=== PATIENT | male | born 1945 | race Caucasian/White ===

== ENCOUNTER 2021-07-05 13:53 | Emergency (ER) | payer MEDICARE, SELFPAY ==
--- NOTE | 2021-07-05 14:02 | ED.CHESTPAIN ---
HPI - Chest Pain General Chief Complaint: Chest Pain Stated Complaint: chest pain with vomiting Source: patient Mode of arrival: ambulatory Limitations: no limitations History of Present Illness HPI narrative: Patient is a 75-year-old male who presents complaining of chest pain x2 weeks. Reports increasing chest pain today. Denies shortness of breath. Reports significant cardiac history. Patient is from out of town and visiting family at this time. MD complaint: chest pain Related Data Home Medications Medication Instructions Recorded Confirmed allopurinol 150 mg PO DAILY 07/05/21 07/05/21 aspirin 81 mg PO DAILY 07/05/21 07/05/21 cilostazol mg 07/05/21 doxazosin 2 mg PO DAILY 07/05/21 07/05/21 dutasteride [Avodart] 0.5 mg PO DAILY 07/05/21 07/05/21 finasteride mg 07/05/21 fluticasone propionate [Flonase] INTRANASAL 07/05/21 hydrocodone-aspirin tablet PO 07/05/21 metoprolol succinate 50 mg PO DAILY 07/05/21 07/05/21 omeprazole 40 mg PO DAILY 07/05/21 07/05/21 pravastatin 20 mg PO DAILY 07/05/21 07/05/21 tamsulosin 0.4 mg PO DAILY 07/05/21 07/05/21 valsartan-hydrochlorothiazide 1 tablet PO DAILY 07/05/21 07/05/21 Allergies Allergy/AdvReac Type Severity Reaction Status Date / Time No Known Allergies Allergy Verified 07/05/21 14:12 Review of Systems Review of Systems: CONSTITUTIONAL: Denies fever, chills, or sweats. EYES: Denies visual changes, redness, or discharge. ENT: Denies rhinorrhea, congestion, sore throat, or otalgia. CARDIOVASCULAR: Reports chest pain RESPIRATORY: Denies cough or dyspnea. GASTROINTESTINAL: Denies abdominal pain, nausea, vomiting, or diarrhea. GENITOURINARY: Denies dysuria or hematuria. SKIN: Denies rash or itching. MUSCULOSKELETAL: Denies back pain, joint pain, or myalgia. NEUROLOGIC: Denies headache, numbness, dizziness, or weakness. PSYCHIATRIC: Denies anxiety or depression. [facility] Past Medical History Medical History Cataract CVA (cerebral vascular accident) Elevated cholesterol Enlarged prostate GERD (gastroesophageal reflux disease) Gout HTN (hypertension) Stomach tumor (benign) Surgical History Surgical History H/O hernia repair H/O vasectomy Social History Social History (Updated 07/05/21 @ 14:16 by LUIS ENRIQUE Miner) Smoking status: Former smoker Alcohol intake: never Substance use: never Living arrangements: with family Occupation/Education: retired Comments At the time of signature, I have reviewed and agree with nursing past medical, surgical, social, and family history unless otherwise noted. Please see nursing chart for further information. There is no relevant family history pertinent to the presenting complaint. Exam Narrative: GENERAL: Well-appearing, well-nourished, and in no acute distress. HEAD: Normocephalic, atraumatic. EYES: EOMI. No redness or drainage. Conjunctiva are normal. ENT: Mucous membranes pink and moist. CHEST: No respiratory distress. Clear to auscultation. HEART: Regular rate and rhythm. No murmur appreciated. Normal peripheral pulses. SKIN: Warm, dry, no rash. NEURO: No focal deficits. Alert and oriented x3. Gait steady. PSYCH: Normal affect. No signs of depression or anxiety. Course Course Emergency Course: Report Transfer Transfered to: [facility] Transportation: Other (Patient refusing EMS transfer at this time, will go by private vehicle with daughter driving.) Transfer rationale: Higher level of Care Accepting physician: Dr. Correa Transfer comments: Patient to be transferred to a higher level of care, refusing EMS service and refusing to be transferred to nearest facility, which is [place] at this time. Patient requesting to go to [facility] per daughter, patient is from out of town and daughter would prefer he is at [facility]. Patient and family aware of
--- NOTE | 2021-07-05 14:07 | ECG_ITS ---
Measurements Intervals [place] Rate: 70 P: 68 [place]: 150 QRS: 52 QRSD: 141 T: 46 QT: 414 QTc: 449 Interpretive Statements SINUS RHYTHM RIGHT BUNDLE BRANCH BLOCK BASELINE ARTIFACT- II, III, AVL, AVF, V3 ABNORMAL ECG Electronically Signed On 07-05-2021 16:58:55 [employer] by Arnie Avitia D.O.
[2021-07-05 14:08] VITALS: BP 156/84; PULSE 76; RESP 16; TEMP 36.2; O2SAT 98
== END 2021-07-05 14:20 | disposition short-term general hospital (02) ==
PROVIDERS: Emergency Provider Nurse Practitioner
DX: R07.9 Chest pain, unspecified (principal); Z87.891 Personal history of nicotine dependence; E78.00 Pure hypercholesterolemia, unspecified; N40.0 Benign prostatic hyperplasia without lower urinary tract symptoms; K21.9 Gastro-esophageal reflux disease without esophagitis; M10.9 Gout, unspecified; I10 Essential (primary) hypertension; Z86.73 Personal history of transient ischemic attack (TIA), and cerebral infarction without residual deficits; Z98.52 Vasectomy status; Z79.82 Long term (current) use of aspirin
CPT/HCPCS: 93005; 99213; G0463

== ENCOUNTER 2023-10-13 23:05 | Emergency (ER) | payer MEDICARE, SELFPAY ==
--- NOTE | ~2023-10-13 | CT_ITS ---
Clinical Indication: Trauma CT Scan of the Chest with Contrast: Technique: Contiguous sections were acquired throughout the chest after intravenous administration of 100 cc of Omnipaque 350. Dose reduction technique was used on this scan by utilizing automated expos ure control and iterative reconstruction technique. The dose-length product (DLP) was 182.23 mGy-cm. Findings: There is no evidence of any significant mediastinal, hilar or axillary lymphadenopathy. There is no f illing defect in the pulmonary arterial tree to suggest pulmonary embolus. There is no evidence of ao rtic dissection or aneurysm. There is no evidence of pleural or pericardial effusion. Probable minimal emphysema. There is linear scarring or atelectasis right lower lobe. No suspicious p ulmonary abnormality seen. No pneumothorax. Images through the upper abdomen reveal no abnormalities. There are acute minimally displaced fractures of the lateral aspect of the right seventh and eighth r ibs. Multiple additional subacute to chronic bilateral rib fracture deformities are present. Severe c ompression fracture T12 present. Impression: Acute minimally displaced fractures of the right seventh and eighth ribs laterally. Severe T12 compression fracture, age-indeterminate. Multiple additional bilateral subacute to chronic rib fracture deformities. Probable minimal emphysema in the upper lobes. Reviewed, dictated and finalized at [facility]. Impression: Acute minimally displaced fractures of the right seventh and eighth ribs latera lly. Severe T12 compression fracture, age-indeterminate. Multiple additional bilateral subacute to chronic rib fracture deformities. Probable minimal emphysema in the upper lobes.
--- NOTE | ~2023-10-13 | CT_ITS ---
CT head without contrast Indication: Status post fall Technique: Serial scans were obtained through the brain without the administration of contrast. Dose reduction technique was used on this scan by utilizing automated exposure control and iterative recon struction technique. The dose-length product (DLP) was 681.00 mGy-cm. Findings: There is no evidence of intracranial hemorrhage, mass lesion, or acute infarct. The ventri cles and subarachnoid spaces are dilated, consistent with mild atrophy. Focal chronic infarcts are no broderick in the right basal ganglia and left periventricular white matter.. Low attenuation regions are se en within the periventricular white matter bilaterally, likely representing changes from chronic micr ovascular ischemic disease. There is no evidence of edema, mass effect or midline shift. The visual ized paranasal sinuses and mastoid air cells are clear. Impression: No intracranial hemorrhage, mass, or acute infarct. Focal chronic infarcts, as above. Atrophy and chronic white matter changes, as above. Reviewed, dictated and finalized at location . Impression: No intracranial hemorrhage, mass, or acute infarct. Focal chronic infarcts, as above. Atrophy and chronic white matter changes, as above.
--- NOTE | ~2023-10-13 | XR_ITS ---
EXAM: XR shoulder LT min 2V DATE: 10/13/2023 23:54 HISTORY: Fall PAIN . COMPARISON: None available. FINDINGS: Normal mineralization. Comminuted fracture of the left scapular body. Multiple rib fractur es involving the left posterior and posterolateral third through ninth, several of which are segmenta l. Healing change may be present at several of the rib fracture sites. No lytic or blastic lesion. Lynn int spaces are maintained. No erosion or periosteal change. Soft tissues within normal limits. IMPRESSION: Acute comminuted fracture of the left scapular body.. Multiple acute and possibly subacute left third through ninth posterior and posterolateral rib fractu res several of which are segmental. Reviewed, dictated and finalized at location [facility]. IMPRESSION: Acute comminuted fracture of the left scapular body.. Multiple acute and possibly subacute left third through ninth posterior and pos terolateral rib fractures several of which are segmental.
--- NOTE | ~2023-10-13 | CT_ITS ---
Noncontrast CT scan of the cervical spine Technique: Multiple contiguous axial [address] images of the cervical spine were obtained and rec onstructed in 2D sagittal and coronal planes on the acquisition scanner. Dose reduction technique was used on this scan by utilizing automated exposure control, adjustment of the mA and/or kV according to patient size. The dose-length product (DLP) was 174.44 mGy-cm. Clinical History: Pain Findings: No acute fracture seen. There is minimal grade 1 anterolisthesis of C4 over C5. There is ad vanced degenerative disc narrowing at C3-C4 and C6-C7. There is moderate degenerative disc narrowing at C5-C6. There are are extensive facet joint degenerative changes, especially at the C3-C4, C4-C5, C 5-C6 levels bilaterally. No prevertebral soft tissue swelling. There is mild emphysema at the lung apices. Impression: No acute fracture. Minimal grade 1 anterolisthesis of C4 over C5. Degenerative changes, as above. Reviewed, dictated and finalized at [facility]. Impression: No acute fracture. Minimal grade 1 anterolisthesis of C4 over C5. Degenerative changes, as above.
[2023-10-13 23:09] VITALS: BP 149/73; PULSE 88; RESP 20; TEMP 36.9; O2SAT 94
[2023-10-13 23:25] VITALS: BP 158/80; PULSE 88; RESP 18; O2SAT 95
--- NOTE | 2023-10-13 23:33 | ED.GENADULT ---
HPI - General Adult General Chief complaint: Trauma Stated complaint: fall Time Seen by Provider: 10/13/23 23:17 History of Present Illness HPI narrative: Patient is a 77-year-old male who presents to the emergency department this evening status post fall which occurred at home. Patient states that he was going up the stairs and had 1. Left when he fell backwards down the stairs. Patient admits that he did hit his head and reports that he does take a blood thinner. Patient denies any loss of consciousness and admits that he remembers the full event. He was able to get up and has been ambulatory since the fall. Patient is also complaining of left shoulder pain and secondary to this range of motion at the left shoulder is limited. Patient is able to move his left arm at the shoulder joint slightly. He denies any additional injuries and has no further complaints at this time. There are no other modifying, alleviating, or precipitating factors. Related Data Home Medications Medication Instructions Recorded Confirmed allopurinol 300 mg tablet 150 mg PO DAILY 07/05/21 07/05/21 aspirin 81 mg capsule 81 mg PO DAILY 07/05/21 07/05/21 cilostazol 100 mg tablet mg 07/05/21 doxazosin 2 mg tablet 2 mg PO DAILY 07/05/21 07/05/21 dutasteride 0.5 mg capsule 0.5 mg PO DAILY 07/05/21 07/05/21 (Avodart) finasteride 5 mg tablet mg 07/05/21 fluticasone propionate 50 intranasal 07/05/21 mcg/actuation nasal spray,suspension hydrocodone-aspirin 5 mg-500 mg tablet PO 07/05/21 tablet metoprolol succinate 50 mg 50 mg PO DAILY 07/05/21 07/05/21 tablet,extended release 24 hr omeprazole 40 mg capsule,delayed 40 mg PO DAILY 07/05/21 07/05/21 release pravastatin 20 mg tablet 20 mg PO DAILY 07/05/21 07/05/21 tamsulosin 0.4 mg capsule 0.4 mg PO DAILY 07/05/21 07/05/21 valsartan 320 1 tablet PO DAILY 07/05/21 07/05/21 mg-hydrochlorothiazide 12.5 mg tablet Allergies Allergy/AdvReac Type Severity Reaction Status Date / Time No Known Allergies Allergy Verified 10/13/23 23:26 Review of Systems Review of Systems: All systems are reviewed and are negative unless stated otherwise in the HPI. [facility] Past Medical History Medical History Cataract CVA (cerebral vascular accident) Elevated cholesterol Enlarged prostate GERD (gastroesophageal reflux disease) Gout HTN (hypertension) Stomach tumor (benign) Surgical History Surgical History H/O hernia repair H/O vasectomy Social History Social History Smoking status: Former smoker Alcohol intake: never Substance use: never Living arrangements: with family Occupation/Education: retired Exam Narrative: General: Alert, awake, afebrile, in no acute distress. HEENT: PERRL, no rhinorrhea, no post nasal drip, oropharynx clear. Neck: Trachea midline, no JVD, no lymphadenopathy. Cardiovascular: Regular rate and rhythm, no murmurs, rubs or gallops, no peripheral edema. Respiratory: Clear to auscultation bilaterally, no tachypnea, no wheezing, no rhonchi, no rubs, no respiratory distress. Abdomen: Soft, nontender, nondistended, no rebound, no guarding, no peritoneal signs. Musculoskeletal: Tenderness to palpation over the posterior aspect of the left shoulder joint, limited range of motion at the left shoulder due to pain, patient does have some movement of the joint although limited, intact range of motion at the left elbow and left wrist joints with no pain, intact left radial and ulnar pulses, intact sensation, patient is neurovascularly intact. Skin: No rashes or petechia, no signs of infection. Psychiatric: Alert and oriented, normal behavior and judgment for situation. Neurological: Alert and oriented to person, place, and time. Follows all commands. No focal deficits, speech is clear and fluent.
[2023-10-13] MEDS: HYDROcodone/acetaminophen (*CRX) 5-325 MG TABLET 1 TAB PO (23:55)
--- NOTE | 2023-10-14 00:21 | ECG_ITS ---
Measurements Intervals [place] Rate: 87 P: 62 [place]: 146 QRS: 61 QRSD: 142 T: 42 QT: 403 QTc: 485 Interpretive Statements SINUS RHYTHM WITH OCCASIONAL VENTRICULAR PREMATURE COMPLEXES WITH OCCASIONAL SUPRAVENTRICULAR PREMATURE COMPLEXES BASELINE ARTIFACT RIGHT BUNDLE BRANCH BLOCK BORDERLINE ECG COMPARED TO ECG 07/05/2021 14:07:29 NO SIGNIFICANT CHANGES Electronically Signed On 10-14-2023 14:30:10 CDT by Ronnie Correa M.D.
[2023-10-14 01:09] LABS: Basophils Absolute Auto 0.1 K/mm3 (0.0-0.1); Basophils Percent Auto 0.7 % (0.2-1.2); Eosinophils Absolute Auto 0.3 K/mm3 (0-0.3); Eosinophils Percent Auto 2.6 % (0-4.4); Hematocrit 33.1 % (42.0-52.0); Hemoglobin 11.3 g/dL (14.0-18.0); Lymphocytes Absolute Auto 0.73 K/mm3 (0.9-3.2); Mean Corpuscular HGB Conc 34.1 g/dl (32-36); Mean Corpuscular Volume 108.5 fl (80-100); Mean Platelet Volume 9.9 fl (7.4-10.4); Monocytes Absolute Auto 0.7 K/mm3 (0.1-0.6); Monocytes Percent Auto 6.8 % (2.6-8.5); Neutrophils Absolute Auto 8.5 K/mm3 (1.3-6.7); Neutrophils Percent Auto 81.9 % (45.5-73.1); Platelet Count Result 186 k/mm3 (150-375); Red Blood Count 3.05 M/mm3 (4.6-6.20); Red Cell Distribution Width 15.3 % (11.5-14.5); White Blood Count 10.4 K/mm3 (4.5-10.0)
[2023-10-14 01:29] VITALS: BP 136/78; PULSE 85; RESP 16; O2SAT 95
[2023-10-14 01:31] LABS: Troponin I < 0.012 ng/mL (0.000-0.034)
[2023-10-14] MEDS: MORPHINE SULFATE (*CRX) 2 MG/ML INJ IV PUSH ×2 (01:34→06:08)
[2023-10-14 01:35] LABS: Alanine Aminotransferase 17 U/L (6-50); Albumin Level 3.8 g/dL (3.5-5.1); Alkaline Phosphatase 121 U/L (38-126); Anion Gap 5 mmol/L (4-12); Aspartate Amino Transferase 31 U/L (17-59); Bilirubin,Total 0.4 mg/dL (0.2-1.3); Blood Urea Nitrogen 21 mg/dL (9-20); Carbon Dioxide 28 mmol/L (22-30); Chloride 100 mmol/L (98-107); Estimated CRCL calculation 28 ml/min; Estimated Glomerular Filt Rate 49; Glucose 118 mg/dL (65-110); Magnesium 1.8 mg/dL (1.6-2.3); Potassium 3.7 mmol/L (3.4-5.0); Sodium 133 mmol/L (137-145)
[2023-10-14 01:49] LABS: INR 0.9
[2023-10-14 01:58] LABS: Partial Thromboplastin Time 23.4 Seconds (22.3-36.8)
[2023-10-14 02:50] VITALS: BP 137/83; PULSE 86; RESP 17; O2SAT 95
[2023-10-14 04:58] VITALS: BP 133/82; PULSE 78; RESP 17; O2SAT 95
[2023-10-14 06:20] VITALS: BP 147/86; PULSE 82; RESP 16; O2SAT 95
== END 2023-10-14 06:20 | disposition home or self-care (01) ==
PROVIDERS: Emergency Provider Emergency Medicine
DX: S09.90XA Unspecified injury of head, initial encounter (principal); S42.112A Displaced fracture of body of scapula, left shoulder, initial encounter for closed fracture; I49.1 Atrial premature depolarization; I45.10 Unspecified right bundle-branch block; I10 Essential (primary) hypertension; N40.0 Benign prostatic hyperplasia without lower urinary tract symptoms; K21.9 Gastro-esophageal reflux disease without esophagitis; M10.9 Gout, unspecified; Z86.73 Personal history of transient ischemic attack (TIA), and cerebral infarction without residual deficits; Z87.891 Personal history of nicotine dependence; Z79.82 Long term (current) use of aspirin; W10.9XXA Fall (on) (from) unspecified stairs and steps, initial encounter
CPT/HCPCS: 36415; 70450; 71275; 72125; 73030; 80053; 83735; 84484; 85025; 85610; 85730; 93005; 96374; 96376; 99284; A9270; J2270; Q9967